=== PATIENT | male | born 1975 | race Asian ===

== ENCOUNTER 2017-04-24 08:23 | Outpatient (CLI) | payer BC, OTHER ==
--- NOTE | 2017-04-24 09:50 | CT ---
CT ABDOMEN AND PELVIS WITH AND WITHOUT IV CONTRAST: Date: 04/24/17 HISTORY: Microhematuria. FINDINGS: Absence of oral contrast reduces the sensitivity of exam for evaluation of bowel. The lung bases are clear. No free air, free fluid, or lymphadenopathy is identified in the abdomen o r pelvis. There is a 1.5 cm peripheral lesion in the right lobe of the liver with peripheral nodular enhancement and centripetal filling consistent with hemangioma. No calcified gallstones are seen. T he spleen, pancreas, and adrenal glands are normal. No calculi are identified in the kidneys, ureters, or the urinary bladder. No hydroureteronephrosis is seen on either side. Postcontrast images demonstrate no evidence of renal mass. There is normal c ontrast excretion into the ureters and the urinary bladder. A normal appearing appendix is present. There is mild sigmoid diverticulosis. No acute osseous abnor malities are seen. IMPRESSION: 1. No CT evidence of urinary tract calculi/obstruction or renal mass. 2. Liver hemangioma. POS: [facility]
[2017-04-24] MEDS ORDERED: Iopamidol 370 76% 100 ML VIAL ONE (15:59)
== END 2017-04-24 08:24 | disposition home or self-care (01) ==
LOC: CT 08:23
PROVIDERS: ATTEND Urology
DX: R31.29 Other microscopic hematuria (principal); D18.03 Hemangioma of intra-abdominal structures
CPT/HCPCS: 74178